=== PATIENT | male | born 1950 | race Caucasian/White ===

== ENCOUNTER 2017-06-13 06:41 | Inpatient (IN) | payer MEDICARE, OTHER ==
[2017-06-12] MEDS: CEFAZOLIN 2 GM/50 ML (PMX) 50 ML IVPB (06:00)
[2017-06-12] MEDS: TRANEXAMIC ACID 1,000 MG in DEXTROSE 5% 100 ML IVPB (06:00)
[2017-06-12] MEDS: SOD CHLORIDE 0.9% 100 ML, TRANEXAMIC ACID 3,000 MG IRR (06:00)
[2017-06-13] MEDS: SOD CHLORIDE 0.9% 100 ML, TRANEXAMIC ACID 3,000 MG IRR (06:00)
[2017-06-13] MEDS: CEFAZOLIN 2 GM/50 ML (PMX) 50 ML IVPB (06:00)
[2017-06-13] MEDS: traMADol 50 MG TAB PO ×2 (06:00→08:12)
[~2017-06-13 06:41] MED LIST: BUPIVACAINE 0.5% (SDV) 30 ML, morphine SULFATE (PF) 8 MG, EPINEPHrine 0.3 MG, KETOROLAC... IRR; DEXAMETHASONE 1 MG TAB PO; GABAPENTIN 300 MG CAP PO
[2017-06-13] MEDS ORDERED: PROPOFOL 1000 MG INJ (07:00)
[2017-06-13] MEDS: TRANEXAMIC ACID 1,000 MG in DEXTROSE 5% 100 ML IVPB (08:00)
[2017-06-13] MEDS: GABAPENTIN 300 MG CAP PO ×2 (08:12→20:06)
[2017-06-13] MEDS: DEXAMETHASONE 1 MG TAB PO (08:12)
[2017-06-13] MEDS ORDERED: NEOSTIGMINE 3 MG/3 ML SYRINGE (08:16)
[2017-06-13] MEDS ORDERED: ROCURONIUM 50 MG INJ (08:16)
[2017-06-13] MEDS ORDERED: PROPOFOL 20 ML (08:16)
[2017-06-13] MEDS ORDERED: GLYCOPYRROLATE 0.4 MG INJ (08:16)
[2017-06-13] MEDS ORDERED: CEFAZOLIN 1 GM INJ (08:16)
[2017-06-13] MEDS ORDERED: ONDANSETRON 4 MG INJ ×2 (08:17→11:03)
[2017-06-13] MEDS ORDERED: DEXAMETHASONE 4 MG/ML 1 ML INJ (08:17)
[2017-06-13] MEDS ORDERED: MIDAZOLAM 1 MG/ML 2 ML INJ (08:17)
[2017-06-13] MEDS ORDERED: FENTAnyl 50 MCG/ML VIAL (08:17)
[2017-06-13] MEDS ORDERED: morphine SULFATE/PF (10 MG/10 ML) INJ (08:17)
[2017-06-13] MEDS ORDERED: TRIAMCINOLONE ACET 40 MG/ML INJ (09:35)
[2017-06-13] MEDS: CA CHLORIDE 10% 10 ML SYRINGE (09:54)
[2017-06-13] MEDS: THROMBIN 5000 UNIT VIAL (09:54)
[2017-06-13] MEDS: POLYMYXIN/BACITRACIN 1L IRRIG (09:55)
[2017-06-13] MEDS ORDERED: ZOLPIDEM 5 MG TAB PO (10:30)
[2017-06-13] MEDS ORDERED: KETOROLAC 30 MG INJ IV (10:30)
[2017-06-13] MEDS ORDERED: NALBUPHINE HCL (10 MG/1 ML) INJ IV (10:30)
[2017-06-13] MEDS ORDERED: IPRATROPIUM (NEB) 0.5 MG/2.5 ML AMP HHN (10:30)
[2017-06-13] MEDS ORDERED: HYDROmorphONE (0.2 MG/ML) 10ML SYG IV ×3 (10:30)
[2017-06-13] MEDS ORDERED: hydrALAzine 20 MG INJ IV (10:30)
[2017-06-13] MEDS ORDERED: HYDROmorphONE 0.5 MG/0.5 ML SYG IV ×2 (10:30)
[2017-06-13] MEDS ORDERED: FENTAnyl 50 MCG/ML VIAL IV ×3 (10:30)
[2017-06-13] MEDS ORDERED: EPHEDrine SULFATE 50 MG/5 ML SYG IV (10:30)
[2017-06-13] MEDS ORDERED: OXYCODONE/ACETAMINOPHEN (5/325) TAB PO ×2 (10:30)
[2017-06-13] MEDS ORDERED: ALBUTEROL 0.083% (NEB) 2.5 MG/3 ML AMP HHN (10:30)
[2017-06-13] MEDS ORDERED: TRIMETHOBENZAMIDE 100 MG/ML VIAL IM (10:30)
[2017-06-13] MEDS ORDERED: DIPHENHYDRAMINE 50 MG INJ IV ×3 (10:30→11:30)
[2017-06-13] MEDS ORDERED: ONDANSETRON 4 MG INJ IV (10:30)
[2017-06-13] MEDS ORDERED: MEPERIDINE 25 MG INJ IV (10:30)
[2017-06-13] MEDS ORDERED: MIDAZOLAM 1 MG/ML 2 ML INJ IV (10:30)
[2017-06-13] MEDS ORDERED: LABETALOL HCL 20MG INJ IV (10:30)
[2017-06-13] MEDS ORDERED: NALOXONE (0.4 MG/ML) INJ IV (10:30)
[2017-06-13] MEDS ORDERED: SUGAMMADEX SODIUM 200 MG/2 ML VIAL IV (11:02)
[2017-06-13] MEDS ORDERED: ACETAMINOPHEN 500 MG TAB PO (11:30)
[2017-06-13] MEDS: CEFAZOLIN 1 GM/50 ML (PMX) 50 ML IVPB ×2 (11:30→19:34)
[2017-06-13] MEDS ORDERED: MAGNESIUM HYDROXIDE 30ML CUP PO (11:30)
[2017-06-13 11:50] LABS: ADD MAN DIFF? NO
[2017-06-13 11:51] LABS: BASOPHILS % 0.4 % (0.0-2.0); EOSINOPHILS % 0.5 % (0.0-7.0); HEMOGLOBIN 13.8 g/dl (14.0-18.0); LYMPHOCYTES # 1.2 10^3/ul (0.8-2.9); LYMPHOCYTES % 14.1 % (15.0-51.0); MEAN CORPUSCULAR HEMOGLOBIN 32.4 pg (29.0-33.0); MEAN CORPUSCULAR HGB CONC 33.7 g/dl (32.0-37.0); MEAN CORPUSCULAR VOLUME 96.2 fl (82.0-101.0); MEAN PLATELET VOLUME 9.4 fl (7.4-10.4); MONOCYTE # 0.3 10^3/ul (0.3-0.9); MONOCYTES % 3.1 % (0.0-11.0); NEUTROPHIL # 6.9 10^3/ul (1.6-7.5); NEUTROPHILS % 81.1 % (39.0-77.0); PLATELET COUNT 177 10^3/UL (140-415); RED BLOOD COUNT 4.26 10^6/ul (4.70-6.10); RED CELL DISTRIBUTION WIDTH 13.2 % (11.5-14.5)
[2017-06-13 11:51] LABS: WHITE BLOOD COUNT 8.5 10^3/ul (4.8-10.8)
[2017-06-13] MEDS: DEXAMETHASONE 2 MG TAB PO ×2 (12:00→17:49)
[2017-06-13] MEDS: TRANEXAMIC ACID 1,000 MG in DEXTROSE 5% 100 ML IV (12:56)
[2017-06-13] MEDS: LACTATED RINGER'S 1,000 ML IV ×2 (17:49→21:09)
[2017-06-13] MEDS: TAMSULOSIN (SR) 0.4 MG CAP PO (20:06)
[2017-06-13] MEDS: SENNA/DOCUSATE NA (8.6MG/50MG) TAB PO (20:07)
[2017-06-13] MEDS: ATORVASTATIN 40 MG TAB PO (20:07)
[2017-06-13] MEDS: ONDANSETRON 4 MG INJ IV (20:21)
[2017-06-14] MEDS: DEXAMETHASONE 2 MG TAB PO ×2 (00:46→05:15)
[2017-06-14] MEDS: CEFAZOLIN 1 GM/50 ML (PMX) 50 ML IVPB (04:06)
[2017-06-14] MEDS: LACTATED RINGER'S 1,000 ML IV ×2 (04:52→06:34)
[2017-06-14 05:20] LABS: ADD MAN DIFF? NO
[2017-06-14 05:31] LABS: BASOPHILS % 0.1 % (0.0-2.0); HEMATOCRIT 37.1 % (42.0-52.0); HEMOGLOBIN 12.8 g/dl (14.0-18.0); LYMPHOCYTES # 0.6 10^3/ul (0.8-2.9); LYMPHOCYTES % 4.6 % (15.0-51.0); MEAN CORPUSCULAR HEMOGLOBIN 32.4 pg (29.0-33.0); MEAN CORPUSCULAR HGB CONC 34.5 g/dl (32.0-37.0); MEAN CORPUSCULAR VOLUME 93.9 fl (82.0-101.0); MEAN PLATELET VOLUME 10.5 fl (7.4-10.4); MONOCYTE # 0.4 10^3/ul (0.3-0.9); NEUTROPHIL # 12.5 10^3/ul (1.6-7.5); NEUTROPHILS % 91.8 % (39.0-77.0); PLATELET COUNT 178 10^3/UL (140-415); RED BLOOD COUNT 3.95 10^6/ul (4.70-6.10)
[2017-06-14 05:31] LABS: WHITE BLOOD COUNT 13.6 10^3/ul (4.8-10.8)
[2017-06-14 05:54] LABS: ALANINE AMINOTRANSFERASE 30 IU/L (13-69); ALBUMIN/GLOBULIN RATIO 1.11; ALKALINE PHOSPHATASE 49 IU/L (42-121); ANION GAP 11 (8-16); ASPARTATE AMINO TRANSFERASE 24 IU/L (15-46); BILIRUBIN,INDIRECT 0.4 mg/dl (0-1.1); BILIRUBIN,TOTAL 0.4 mg/dl (0.2-1.3); BLOOD UREA NITROGEN 18 mg/dl (7-20); CALCIUM 9.1 mg/dl (8.4-10.2); CARBON DIOXIDE 26 mmol/L (21-31); CHLORIDE 106 mmol/L (97-110); GLUCOSE 178 mg/dl (70-220); POTASSIUM 4.8 mmol/L (3.5-5.1); SODIUM 138 mmol/L (135-144); TOTAL PROTEIN 5.7 g/dl (6.1-8.1)
[2017-06-14] MEDS: ASPIRIN 81 MG TAB PO (08:48)
[2017-06-14] MEDS: SENNA/DOCUSATE NA (8.6MG/50MG) TAB PO (08:48)
[2017-06-14] MEDS ORDERED: KETOROLAC 15 MG INJ IV (09:30)
[2017-06-14] MEDS ORDERED: DIPHENHYDRAMINE 50 MG INJ IV (09:30)
[2017-06-14] MEDS ORDERED: OXYCODONE/ACETAMINOPHEN (5/325) TAB PO ×2 (09:30)
[2017-06-14] MEDS ORDERED: ONDANSETRON 4 MG INJ IV (09:30)
[2017-06-14] MEDS ORDERED: morphine 2 MG INJ IV ×2 (09:30)
[2017-06-14] MEDS ORDERED: ZOLPIDEM 5 MG TAB PO (09:30)
== END 2017-06-14 16:30 | disposition home or self-care (01) | DRG 470 ==
LOC: REC 06:41 → MS1 13:00
PROVIDERS: Orthopaedic Surgery
PROC: 0SR904A Replacement of Right Hip Joint with Ceramic on Polyethylene Synthetic Substitute, Uncemented, Open Approach (ICD-10-PCS; principal; 2017-06-13 09:32)
PROC: 3E0U33Z Introduction of Anti-inflammatory into Joints, Percutaneous Approach (ICD-10-PCS; 2017-06-13 09:32)
PROC: 3E0U3BZ Introduction of Anesthetic Agent into Joints, Percutaneous Approach (ICD-10-PCS; 2017-06-13 09:32)
DX: M16.11 Unilateral primary osteoarthritis, right hip (principal); G62.9 Polyneuropathy, unspecified; E78.5 Hyperlipidemia, unspecified; M17.11 Unilateral primary osteoarthritis, right knee; N40.0 Benign prostatic hyperplasia without lower urinary tract symptoms; Z85.46 Personal history of malignant neoplasm of prostate
CPT/HCPCS: 72170; 73530; 80053; 85025; 86999; 88304; 88311; 97110; 97116; 97162; 97530